=== PATIENT | female | born 1950 | race Caucasian/White ===

== ENCOUNTER → 2017-01-11 | Outpatient (CLI) | payer BC, MEDICARE ==
[~2017-01-11] MED LIST: ASPIRIN 81M81 MG/TA2 PO; CORDARONE200 MG/TAB PO; COUMADIN 5MG5 MG/TAB PO; DYAZIDE 25 MG-31 CAP PO; LIPITOR 10MG10 MG PO; LOVENOX 8080 MG/0.8 SQ; TENORMIN 5050 MG/TAB PO
== END ==
LOC: COL.VAS 08:00
DX: M79.89 Other specified soft tissue disorders (principal)

== ENCOUNTER 2017-02-07 13:53 | Outpatient (RCR) | payer BC, MEDICARE | END 2017-05-08 | LOC: MKS.ESL.PT | DX: M79.89 Other specified soft tissue disorders (principal) | CPT/HCPCS: G8990-GP; G8991-GP; G8992-GP ==

== ENCOUNTER → 2017-06-14 | Outpatient (CLI) | payer BC, MEDICARE | LOC: MC.RAD 05-23 15:00 | DX: Z12.31 Encounter for screening mammogram for malignant neoplasm of breast (principal) ==

== ENCOUNTER → 2018-07-03 | Outpatient (CLI) | payer BC, MEDICARE | LOC: MC.RAD 14:27 | DX: Z12.31 Encounter for screening mammogram for malignant neoplasm of breast (principal) ==

== ENCOUNTER → 2019-07-21 | Outpatient (CLI) | payer BC, MEDICARE | LOC: MC.RAD 11:15 | DX: Z12.31 Encounter for screening mammogram for malignant neoplasm of breast (principal) ==

== ENCOUNTER → 2020-08-16 | Outpatient (CLI) | payer BC, MEDICARE | LOC: MC.RAD 14:15 | DX: Z12.31 Encounter for screening mammogram for malignant neoplasm of breast (principal) ==

== ENCOUNTER → 2021-08-17 | Outpatient (CLI) | payer BC, MEDICARE | LOC: MC.RAD 14:30 | DX: Z12.31 Encounter for screening mammogram for malignant neoplasm of breast (principal) ==